=== PATIENT | female | born 1980 | race Caucasian/White ===

== ENCOUNTER 2016-06-12 09:19 | Day surgery (SDC) | payer BC ==
--- NOTE | 2016-06-05 16:50 | History and Physical Report ---
I saw Ms. Jones in the office on 06/05/16 in regards to a chronic left breast abscess. Ms. Jones is a 28-year-old female who states this has been present for about six to seven months. She stated she did have bilateral abscesses on her breasts, the right one drained spontaneously and resolved, the left one has always been festering. She was then placed on two courses on antibiotics without full resolution. PAST MEDICAL HISTORY: Significant for asthma. PAST SURGICAL HISTORY: Appendectomy. Cholecystectomy. Bunion surgery. Left ankle surgery. MEDICATIONS: She currently takes; Ventolin Advair as needed ALLERGIES: HAS NO KNOWN MEDICAL ALLERGIES. SOCIAL HISTORY: She denies any tobacco usages. She describes alcohol intake as social. PHYSICAL EXAMINATION: GENERAL: Height is 5'5". Weight is 265. She is afebrile. VITAL SIGNS: Stable. HEART: Regular. LUNGS: Clear. ABDOMEN: Soft. EXAMINATION OF HER BREASTS: On the right. there are no dominant breast masses noted. There is no supra- or infraclavicular adenopathy. No occipital adenopathy. No axillary adenopathy. On the left, there are no masses or adenopathy noted. She does have a 1.5 cm region at the 12 o'clock position to the inferior aspect of her breast, which has a chronic draining sinus. Most likely, has an underlying chronic abscess cavity. We did discuss risks, benefits , and alternatives to excising this area. Her main risk is wound infection afterwards. This is an area that is in a fold of her breast and postop wound infection is a possibility. We will schedule her for excision of this area. She also needs to be scheduled for mammography due to the fact that she is 36 and has never had any imaging done. This will be scheduled as well. I will see her back in two weeks after for postop check. Lam Doll D.O. Date & Time cc: Dr. Maged Wilson JOB [facility]BER: [id number] [facility]
[~2016-06-12 09:19] MED LIST: ACETAMINOPHEN 1000MG/100 ML PREMIX IV ONE; CEFAZOLIN 1 Gram 50 ML IVPB ONE
[2016-06-12] MEDS ORDERED: BUPIVACAINE 0.25% W/EPI MPF 30ML VIAL IVP ONE (14:00)
[2016-06-12] MEDS ORDERED: ONDANSETRON HCL IV 4 MG/2 ML VIAL IVP ONE (14:00)
[2016-06-12] MEDS ORDERED: FENTANYL PF 100MCG/2ML VIAL IV ONE (15:38)
[2016-06-12] MEDS ORDERED: LIDOCAINE 2% MDV (20MG/ML) 20ML VIAL IV ONE (15:38)
[2016-06-12] MEDS ORDERED: MIDAZOLAM HCL 2MG/2ML VIAL IV ONE (15:38)
[2016-06-12] MEDS ORDERED: PROPOFOL 10 MG/ML VIAL IV ONE (15:38)
--- NOTE | 2016-06-15 13:08 | Operative Note ---
DATE OF SURGERY: 06/12/2016 REFERRING: Maged Wilson D.O. PREOPERATIVE DIAGNOSIS: Recurrent left breast cyst. POSTOPERATIVE DIAGNOSIS: Recurrent left breast cyst. OPERATION: Excision of left breast cyst. Surgeon: Lam Doll D.O. Indication: The patient is a 36-year-old female who has had recurrent mass at the 6 o'clock position of her left breast. She states this occasionally becomes cellulitic and drains. On exam it looks like she has had a chronic abscess in this area. This is currently not infected. We did discuss excision, risks, benefits and alternatives. Her risks include bleeding, infection, acute chronic pain recurrence and she understood this fully. Consent was signed and questions answered. PROCEDURE: She was taken to the Operating Room and placed in the supine position. General anesthesia was administered per Department of Anesthesia. The patient's left breast was taped up. Her breast was prepped and draped in the usual sterile fashion. The area around the mass was anesthetized with a total of 5 mL of 0.25% Sensorcaine with epinephrine. An elliptical incision was made. This was carried around incorporating the entire mass. This measured about 3 x 2 cm. The wound was then irrigated. This was closed in layers with 3-0 and 4-0 Vicryl. She was taken to the Recovery Room in satisfactory condition, final pathology pending. Lam Doll DO CC: Maged Wilson D.O. [facility]
== END 2016-06-12 12:40 | disposition home or self-care (01) ==
LOC: SUR 09:19
PROVIDERS: ATTEND Surgery
DX: N60.02 Solitary cyst of left breast (principal); L72.0 Epidermal cyst
CPT/HCPCS: 19120; 00400; 81025; J2405; J3010; J0690

== ENCOUNTER 2016-10-12 17:54 | Emergency (ER) | payer BC, OTHER ==
--- NOTE | 2016-10-12 18:10 | Emergency Department Record ---
History of Present Illness <Jennifer Espinosa - Last Filed: 10/12/16 20:00> - General Source: Patient Mode of Arrival: Ambulatory Limitations: No limitations - History of Present Illness Initial comments: 36 yo female presents with bilaterally leg swelling today. She has had left side swelling on and off over about one month. She has had some foot and toe pain as well on the left. The pain radiates up the leg posteriorly at times. She states the left side swelling would come and go over a few days at a time. On October 10 she go sunburn on both legs. She now presents with bilateral leg swelling today. She denies right sided pain. She still has the pain on the left side. No fevers, cough, chest pain or cough. She was seen in the [facility] and evaluated. She was prescribed a compression hose. MD Complaint: Extremity pain, Extremity swelling, Joint swelling Onset/Timin -: Days(s) Location: Bilateral, Lower Leg History of Same: Yes Radiation: Distal Severity scale (1-10): 4 Quality: Aching Consistency: Constant Improves with: Nothing Worsens with: Nothing Associated Symptoms: Denies other symptoms <SANDRA CORBETT - Last Filed: 10/13/16 07:57> - General Chief complaint: Swelling of legs Stated complaint: FEET/ANKLES SWOLLEN Time Seen by Provider: 10/12/16 17:55 - Related Data Home Medications Medication Instructions Recorded Confirmed Last Taken Albuterol Sulfate [Ventolin Hfa] 17 gm IH Q4H PRN 12/05/13 10/12/16 1 Day Ago ~02/11/15 Fluticasone/Salmeterol 100/50 1 disk IH BID 02/12/15 10/12/16 1 Day Ago [Advair 100/50] ~02/11/15 Levothyroxine Sodium [Synthroid] 50 mcg PO DAILY 02/12/15 10/12/16 10/12/16 Ropinirole HCl 0.25 mg PO ASDIR #30 03/06/16 10/12/16 Unknown Previous Rx's Medication Instructions Recorded Furosemide [Lasix] 20 mg PO DAILY #7 tablet 10/12/16 Hydrocodone/Acetaminophen [[place] 1 each PO Q8H #10 tablet 10/12/16 5-325 Tablet] Allergies Allergy/AdvReac Type Severity Reaction Status Date / Time No Known Drug Allergies Allergy Verified 10/12/16 18:03 Travel Screening - Travel/Exposure Within Last 30 Days Have you traveled within the last 30 days?: No <SANDRA CORBETT - Last Filed: 10/13/16 07:57> Review of Systems Constitutional: Denies: Chills, Fever, Weakness Eyes: Denies: Eye discharge ENT: Denies: Congestion, Throat pain Respiratory: Denies: Cough, Dyspnea, Hemoptysis, Stridor, Wheezes Cardiovascular: Denies: Chest pain, Palpitations, Syncope Endocrine: Denies: Fatigue Gastrointestinal: Denies: Abdominal pain, Diarrhea, Nausea, Vomiting Genitourinary: Denies: Dysuria, Urgency Musculoskeletal: Reports: Arthralgia, Back pain, Myalgia. Denies: Neck pain Skin: Reports: Change in color (sun burn). Denies: Bruising Neurological: Reports: Numbness (lateral left three toes over the last one month ). Denies: Confusion, Headache Psychiatric: Denies: Anxiety Hematological/Lymphatic: Denies: Blood Clots, Easy bleeding, Easy bruising, Swollen glands <SANDRA CORBETT - Last Filed: 10/13/16 07:57> Past Medical History - SOCIAL HISTORY Smoking Status: Former smoker - RESPIRATORY Hx Respiratory Disorders: Yes Hx Asthma: Yes (good control) - CARDIOVASCULAR Hx Cardio Disorders: No - NEURO Hx Neuro Disorders: Yes Hx Headaches: Yes (frequent stress related) - GI Hx GI Disorders: No - Hx Genitourinary Disorders: Yes Hx Bladder Problem: Yes (urgency) Comment:: 20 years ago on Depo Provera - ENDOCRINE Hx Endocrine Disorders: Yes Hx Thyroid Disease: Yes (hypothyroid off meds) - MUSCULOSKELETAL Hx Musculoskeletal Disorders: No - PSYCH Hx Psych Problems: No - HEMATOLOGY/ONCOLOGY Hx Hematology/Oncology Disorders: No <SANDRA CORBETT - Last Filed: 10/13/16 07:57> Family Medical History Hx Heart Disease: Father Hx HTN: Father, Mother <SANDRA CORBETT - Last Filed: 10/13/16 07:57> Physical Exam - General General Appearance: Alert, Oriented x3, Cooperative, No acute distress Limitations: No limitations - Head Head exam: Normal inspection - Eye Eye exam: Normal appearance, PERRL. negative: Conjunctival injection, Periorbital swelling - ENT ENT exam: Normal exam, Mucous membranes moist Ear exam: Normal external inspection Nasal Exam: Normal inspection Mouth exam: Normal external inspection Teeth exam: Normal inspection - Neck Neck exam: Normal inspection - Respiratory Respiratory exam: Normal lung sounds bilaterally. negative: Respiratory distress - Cardiovascular Cardiovascular Exam: Regular rate, Normal rhythm, Normal heart sounds Peripheral Pulses: 2+: Radial (R), Radial (L) - GI/Abdominal GI/Abdominal exam: Soft. negative: Tenderness - Rectal Rectal exam: Deferred - exam: Deferred - Extremities Extremities exam: Calf tenderness (left), Full ROM, Normal capillary refill, Pedal edema (left greater than right), Tenderness (tender due to sun burn and tender LLE calf and inner thigh), Other (warm foot with good cap refill). negative: Normal inspection (erythema bilaterally consistent with sun burn) - Back Back exam: Reports: Normal inspection, Full ROM. Denies: Muscle spasm, Rash noted, Tenderness - Neurological Neurological exam: Alert, Normal gait, Oriented X3, Reflexes normal, Other (No foot drop, ). negative: Altered, Motor sensory deficit (the lateral 3 toes on the left sensation is intact but she has suject changes, no weakness to foot flexion or extenson or EHL. Full ROM with full strength.) - Psychiatric Psychiatric exam: Normal affect, Normal mood - Skin Skin exam: Erythema (sun burn bilateral legs) <SANDRA CORBETT - Last Filed: 10/13/16 07:57> Course Vital Signs 10/12/16 17:57 Temperature 98.6 F Pulse Rate 101 H Respiratory 20 Rate Blood Pressure 148/88 Pulse Ox 96 - Reevaluation(s) Reevaluation #3: 10/12/16 20:01 urine neg. <Jennifer Espinosa - Last Filed: 10/12/16 20:00> Vital Signs 10/12/16 17:57 Temperature 98.6 F Pulse Rate 101 H Respiratory 20 Rate Blood Pressure 148/88 Pulse Ox 96 - Reevaluation(s) Reevaluation #1: The patient was seen and examined She has bilateral erythema of the legs, very mild right leg swelling with greater swelling on the left Labs, US, XR ordered 10/12/16 18:13 Reevaluation #2: The case was signed out to Dr Espinosa for review of final results The prelim Venous doppler was negative We discussed the TSH. The patient will follow up with her PCP as she is on medication for known hypothroidism 10/12/16 19:14 <SANDRA CORBETT - Last Filed: 10/13/16 07:57> Medical Decision Making - Lab Data Result diagrams: 10/12/16 18:10 10/12/16 18:10 Lab Results 10/12/16 10/12/16 10/12/16 Range/Units 18:10 18:10 18:10 WBC 9.5 (4.2-12.2) K/uL RBC 4.56 (3.80-5.40) M/uL Hgb 13.6 (11.6-16.0) gm/dl Hct 41.1 (35.0-47.0) % MCV 90.1 (81-97) fl MCH 29.8 (27-33) pg MCHC 33.1 (32-36) g/dl RDW 13.4 (11.5-14.5) % Plt Count 346 (130-400) K/uL MPV 8.9 (7.4-10.4) fl Gran % 57.3 (47-80) % Lymphocytes % 33.6 (16-45) % Monocytes % 6.5 (0-9) % Eosinophils % 2.2 (0-6) % Basophils % 0.4 (0-6) % Sodium 139 (136-145) mmol/L Potassium 3.5 (3.5-5.1) mmol/L Chloride 100 (98-107) mmol/L Carbon Dioxide 24.4 (22-30) mmol/L Anion Gap 14.6 (7-16) BUN 8 (7-17) mg/dL Creatinine 0.6 (0.52-1.04) mg/dL Estimated GFR > 60 ml/min Random Glucose 150 H (70-110) mg/dL Calcium 9.2 (8.5-10.1) mg/dL NT-Pro-B Natriuret Pep (<125) pg/mL TSH 11.20 H (0.465-4.68) uIU/ml Urine Color Urine Appearance Urine pH (5.0-8.0) Ur Specific [place] (1.002-1.030) Urine Protein (NEGATIVE) Urine Glucose (UA) (NEGATIVE) Urine Ketones (NEGATIVE) Urine Blood (NEGATIVE) Urine Nitrite (NEGATIVE) Urine Bilirubin (NEGATIVE) Urine Urobilinogen (0.20 - 1.00) E.U./dL Ur Leukocyte Esterase (NEGATIVE) Urine RBC (NONE SEEN) Urine WBC (0-2/hpf) Ur Epithelial Cells (FEW) Urine HCG, Qual (NEGATIVE) 10/12/16 10/12/16 Range/Units 18:10 19:43 WBC (4.2-12.2) K/uL RBC (3.80-5.40) M/uL Hgb (11.6-16.0) gm/dl Hct (35.0-47.0) % MCV (81-97) fl MCH (27-33) pg MCHC (32-36) g/dl RDW (11.5-14.5) % Plt Count (130-400) K/uL MPV (7.4-10.4) fl Gran % (47-80) % Lymphocytes % (16-45) % Monocytes % (0-9) % Eosinophils % (0-6) % Basophils % (0-6) % Sodium (136-145) mmol/L Potassium (3.5-5.1) mmol/L Chloride (98-107) mmol/L Carbon Dioxide (22-30) mmol/L Anion Gap (7-16) BUN (7-17) mg/dL Creatinine (0.52-1.04) mg/dL Estimated GFR ml/min Random Glucose (70-110) mg/dL Calcium (8.5-10.1) mg/dL NT-Pro-B Natriuret Pep 54.70 (<125) pg/mL TSH (0.465-4.68) uIU/ml Urine Color Yellow Urine Appearance Clear Urine pH 6.0 (5.0-8.0) Ur Specific [place] <= 1.005 (1.002-1.030) Urine Protein Negative (NEGATIVE) Urine Glucose (UA) Negative (NEGATIVE) Urine Ketones Negative (NEGATIVE) Urine Blood Trace-i (NEGATIVE) Urine Nitrite Negative (NEGATIVE) Urine Bilirubin Negative (NEGATIVE) Urine Urobilinogen 0.2 (0.20 - 1.00) E.U./dL Ur Leukocyte Esterase Negative (NEGATIVE) Urine RBC 0 - 2 (NONE SEEN) Urine WBC None seen (0-2/hpf) Ur Epithelial Cells 3 - 6 (FEW) Urine HCG, Qual Negative (NEGATIVE) <Jennifer Espinosa - Last Filed: 10/12/16 20:00> - Lab Data Result diagrams: 10/12/16 18:10 10/12/16 18:10 <SANDRA CORBETT - Last Filed: 10/13/16 07:57> Disposition <Jennifer Espinosa - Last Filed: 10/12/16 20:00> <SANDRA CORBETT - Last Filed: 10/13/16 07:57> Clinical Impression: Edema Qualifiers: Edema type: unspecified Qualified Code(s): R60.9 - Edema, unspecified Radiculopathy Qualifiers: Spinal region: lumbar Qualified Code(s): M54.16 - Radiculopathy, lumbar region Disposition: Home, Self-Care Condition: (1) Good Instructions: Leg Edema (ED), Lumbar Radiculopathy (ED) Additional Instructions: Call your family doctor first thing tomorrow for close followup Return or seek medical evaluation if worse, weak, uncontrolled pain Prescriptions: Furosemide [Lasix] 20 mg PO DAILY #7 tablet Hydrocodone/Acetaminophen [[place] 5-325 Tablet] 1 each PO Q8H #10 tablet Forms: Patient Portal Access
[2016-10-12 18:15] LABS: BASO % 0.4 % (0-6); EOS % 2.2 % (0-6); GRAN % 57.3 % (47-80); HEMATOCRIT 41.1 % (35.0-47.0); HEMOGLOBIN 13.6 gm/dl (11.6-16.0); LYMPH % 33.6 % (16-45); MEAN CELL VOLUME 90.1 fl (81-97); MEAN CORPUSCULAR HEMOGLOBIN 29.8 pg (27-33); MEAN CORPUSCULAR HGB CONC 33.1 g/dl (32-36); MEAN PLATELET VOLUME 8.9 fl (7.4-10.4); MONO % 6.5 % (0-9); PLATELET COUNT 346 K/uL (130-400); RED BLOOD COUNT 4.56 M/uL (3.80-5.40); RED CELL DISTRIBUTION WIDTH 13.4 % (11.5-14.5); WHITE BLOOD COUNT W/O DIFF 9.5 K/uL (4.2-12.2)
[2016-10-12 18:27] LABS: ANION GAP 14.6 (7-16); BLOOD UREA NITROGEN 8 mg/dL (7-17); CARBON DIOXIDE 24.4 mmol/L (22-30); CREATININE 0.6 mg/dL (0.52-1.04); EST GLOMERULAR FILTRATION RATE > 60 ml/min; GLUCOSE,RANDOM 150 mg/dL (70-110)
[2016-10-12] MEDS ORDERED: FUROSEMIDE 20 MG TABLET PO ONE (19:13)
[2016-10-12 19:49] LABS: URINE APPEARANCE CLEAR; URINE BILIRUBIN NEGATIVE (NEGATIVE); URINE BLOOD TRACE-I (NEGATIVE); URINE COLOR YELLOW; URINE GLUCOSE (UA) NEGATIVE (NEGATIVE); URINE KETONE NEGATIVE (NEGATIVE); URINE LEUKOCYTE ESTERASE NEGATIVE (NEGATIVE); URINE NITRITE NEGATIVE (NEGATIVE); URINE PROTEIN NEGATIVE (NEGATIVE); URINE UROBILINOGEN 0.2 E.U./dL (0.20 - 1.00)
[2016-10-12 19:56] LABS: URINE RBC 0 - 2 (NONE SEEN); URINE WBC NONE SEEN (0-2/hpf)
[2016-10-12 19:57] LABS: HCG,QUALITATIVE URINE NEGATIVE (NEGATIVE)
--- NOTE | 2016-10-13 08:38 | US VENOUS DOPPLER REPORT ---
EXAM: DUPLEX VENOUS DOPPLER ULTRASOUND OF THE BILATERAL LOWER EXTREMITIES HISTORY: BILATERAL LEG SWELLING, LEFT GREATER THAN RIGHT. TECHNIQUE: Duplex venous Doppler ultrasound of the bilateral lower extremities was obtained. Comparison: None. FINDINGS: RIGHT LEG: The deep venous structures are normally compressible. No filling defects are seen. The right common femoral, superficial femoral, popliteal and proximal calf veins are widely patent. The veins are normally compressible and augmented flow is visible. LEFT LEG: The left common femoral, superficial femoral, left popliteal, and left proximal calf veins are widely patent. The veins are normally compressible and spontaneous and augmented flow is visible. No evidence of deep venous thrombosis. IMPRESSION: NO EVIDENCE OF DEEP VENOUS THROMBOSIS IN EITHER LEG FROM THE COMMON FEMORAL REGION THROUGH THE PROXIMAL CALF VEINS. JOB NUMBER: [id number] [facility]
--- NOTE | 2016-10-13 08:40 | RADIOLOGY REPORT ---
EXAM: LEFT FOOT HISTORY: SWELLING AND NUMBNESS IN HER TOES. TECHNIQUE: Three views of the left foot were obtained. Comparison: None. FINDINGS: No bone or joint abnormality identified. No fracture. No radiopaque foreign body. No destructive or erosive change. IMPRESSION: UNREMARKABLE LEFT FOOT EXAMINATION. JOB NUMBER: [id number] [facility]
== END 2016-10-12 20:08 | disposition home or self-care (01) ==
LOC: ER 17:54
DX: R60.0 Localized edema (principal); M54.16 Radiculopathy, lumbar region
CPT/HCPCS: 80048; 81001; 81025; 83880; 84443; 85025; 93970; 99283; 99284

== ENCOUNTER 2016-12-02 21:38 | Emergency (ER) | payer OTHER ==
--- NOTE | 2016-12-02 23:13 | Emergency Department Record ---
History of Present Illness - General Chief complaint: Extremity Problem Stated complaint: RIGHT LEG INJURY Time Seen by Provider: 12/02/16 22:34 Source: Patient Mode of Arrival: Ambulatory Limitations: No limitations - History of Present Illness Initial comments: The patient was walking and rolled her R ankle about 2 hours ago. She has had R ankle pain mainly and mild R knee pain. She is able to walk with pain. She denies any other injuries. MD Complaint: Extremity pain Onset/Timin -: Minutes(s) Location: Right, Ankle, Knee Severity scale (1-10): 10 Quality: Aching Consistency: Constant, Getting worse Improves with: Nothing Worsens with: Nothing - Related Data Allergies Allergy/AdvReac Type Severity Reaction Status Date / Time No Known Drug Allergies Allergy Verified 10/12/16 18:03 Travel Screening - Travel/Exposure Within Last 30 Days Have you traveled within the last 30 days?: No Review of Systems Constitutional: Denies: Chills, Fever Past Medical History - SOCIAL HISTORY Smoking Status: Former smoker - RESPIRATORY Hx Respiratory Disorders: Yes Hx Asthma: Yes (good control) - CARDIOVASCULAR Hx Cardio Disorders: No - NEURO Hx Neuro Disorders: Yes Hx Headaches: Yes (frequent stress related) - GI Hx GI Disorders: No - Hx Genitourinary Disorders: Yes Hx Bladder Problem: Yes (urgency) Comment:: 20 years ago on Depo Provera - ENDOCRINE Hx Endocrine Disorders: Yes Hx Thyroid Disease: Yes (hypothyroid off meds) - MUSCULOSKELETAL Hx Musculoskeletal Disorders: No - PSYCH Hx Psych Problems: No - HEMATOLOGY/ONCOLOGY Hx Hematology/Oncology Disorders: No Family Medical History Any Significant Family History?: Yes Hx Heart Disease: Father Hx HTN: Father, Mother Physical Exam - General General Appearance: Alert, Oriented x3, Cooperative, No acute distress - Head Head exam: Normal inspection - Eye Eye exam: Normal appearance, PERRL - ENT ENT exam: Normal exam, Mucous membranes moist, Normal external ear exam Ear exam: Normal external inspection. negative: External canal tenderness - Respiratory Respiratory exam: Normal lung sounds bilaterally. negative: Respiratory distress - Cardiovascular Cardiovascular Exam: Regular rate, Normal rhythm, Normal heart sounds - GI/Abdominal GI/Abdominal exam: negative: Tenderness - Extremities Extremities exam: Normal inspection (There is no swelling, bruising, or edema noted.), Full ROM (with pain to the R ankle and knee.), Normal capillary refill , Tenderness (There is mild tenderness to the R anterior lateral ankle just distal to the fibula.) - Neurological Neurological exam: Alert - Psychiatric Psychiatric exam: Normal affect, Normal mood - Skin Skin exam: Dry, Intact, Normal color Course Vital Signs 12/02/16 22:08 Temperature 97.9 F Pulse Rate 91 H Respiratory 18 Rate Blood Pressure 141/96 Pulse Ox 98 - Reevaluation(s) Reevaluation #1: I did explain to the patient that her xrays are normal. She is to see her PCP for recheck if not better in 3 days. 12/02/16 23:16 Medical Decision Making - Data Complexity MDM Data: X-Ray Ordered and/or Reviewed - Radiology Data Radiology results: Report reviewed (R ankle and knee: Neg pre Rad.) Disposition Disposition: Discharge Clinical Impression: Right ankle sprain Qualifiers: Encounter type: initial encounter Involved ligament of ankle: unspecified ligament Qualified Code(s): S93.401A - Sprain of unspecified ligament of right ankle, initial encounter Disposition: Home, Self-Care Condition: (1) Good Instructions: Ankle Sprain (ED) Additional Instructions: Please use Tylenol or Motrin for pain. Wear the ankle splint for 5 days. Please ice and elevate the ankle for 2 days. Please see your PCP if not better in 3-5 days. Return to the ER if not better in a week. Forms: Patient Portal Access Time of Disposition: 23:20 Quality - Quality Measures Quality Measures: N/A - Blood Pressure Screening View Details: Yes Does Patient Have Any of the Following: No Blood Pressure Classification: Hypertensive Reading Systolic Measurement: 141 Diastolic Measurement: 96 Screening for High Blood Pressure: < Pre-Hypertensive BP, F/U Documented > [ [id number]] Pre-Hypertensive Follow-up Interventions: Referral to alternative/primary care provider.
[2016-12-02] MEDS: IBUPROFEN 600 MG TABLET PO ONE (23:27)
--- NOTE | 2016-12-04 21:51 | RADIOLOGY REPORT ---
EXAM: ANKLE RIGHT 3 VIEWS HISTORY: PAIN POST TWISTING INJURY. TECHNIQUE: Three views of the right ankle. COMPARISON: Three views of the right ankle dated 12/03/13. ENCOUNTER: Initial. FINDINGS: There is normal bone mineralization. No acute fracture, dislocation, or destructive bone lesion is seen. On the oblique view, there is subtle lucency near the tip of the medial malleolus, though this is present on the prior examination. The ankle mortise joint space is symmetric. A small plantar calcaneal spur is present. IMPRESSION: 1. NO CONVINCING ACUTE FRACTURE NOR DISLOCATION IDENTIFIED. 2. SUBTLE LUCENCY NEAR THE TIP OF THE MEDIAL MALLEOLUS ON THE OBLIQUE VIEW IS VISUALIZED ON THE PRIOR EXAMINATION. JOB [facility]BER: [id number] [facility]
--- NOTE | 2016-12-04 21:57 | RADIOLOGY REPORT ---
EXAM: KNEE, RIGHT 4 VIEWS HISTORY: RIGHT ANKLE PAIN RADIATING TOWARD RIGHT KNEE POST INJURY. TECHNIQUE: Four views of the right knee. COMPARISON: No prior imaging of the right knee available for comparison. ENCOUNTER: Initial. FINDINGS: There is normal bone mineralization. No acute fracture, dislocation, or destructive bone lesion is seen. The articular relations are maintained and no focal soft tissue abnormality is identified. No joint effusion. IMPRESSION: NORMAL RIGHT KNEE. JOB NUMBER: [id number] [facility]
== END 2016-12-02 23:40 | disposition home or self-care (01) ==
LOC: ER 21:38
DX: S93.401A Sprain of unspecified ligament of right ankle, initial encounter (principal); M25.561 Pain in right knee; X50.0XXA Overexertion from strenuous movement or load, initial encounter; Y93.01 Activity, walking, marching and hiking
CPT/HCPCS: 99283; 99284

== ENCOUNTER 2018-04-04 18:34 | Emergency (ER) | payer SELFPAY ==
[2018-04-04] MEDS ORDERED: 0.9 % SODIUM CHLORIDE 1,000 ML BAG IV ONE (19:16)
[2018-04-04] MEDS ORDERED: KETOROLAC 30 MG/ML VIAL IVP ONE (19:17)
[2018-04-04 19:32] LABS: BASO % 0.1 % (0-6); EOS % 0.8 % (0-6); GRAN % 58.9 % (47-80); HEMATOCRIT 41.4 % (35.0-47.0); HEMOGLOBIN 13.5 gm/dl (11.6-16.0); LYMPH % 32.7 % (16-45); MEAN CELL VOLUME 91.2 fl (81-97); MEAN CORPUSCULAR HEMOGLOBIN 29.7 pg (27-33); MEAN CORPUSCULAR HGB CONC 32.6 g/dl (32-36); MEAN PLATELET VOLUME 8.6 fl (7.4-10.4); MONO % 7.5 % (0-9); PLATELET COUNT 307 K/uL (130-400); RED BLOOD COUNT 4.54 M/uL (3.80-5.40); RED CELL DISTRIBUTION WIDTH 14.1 % (11.5-14.5); WHITE BLOOD COUNT W/O DIFF 9.1 K/uL (4.2-12.2)
[2018-04-04 19:44] LABS: BLOOD UREA NITROGEN 8 mg/dL (6-20); CREATININE 0.7 mg/dL (0.5-0.9); EST GLOMERULAR FILTRATION RATE > 60 mL/min
[2018-04-04 19:47] LABS: GLUCOSE,RANDOM 76 mg/dL (74-109)
--- NOTE | 2018-04-04 19:48 | Emergency Department Record ---
History of Present Illness - General Chief Complaint: Headache Migraine Stated Complaint: [place],BLURRED VISION, EAR PAIN Time Seen by Provider: 04/04/18 19:02 Source: Patient Mode of Arrival: Ambulatory Limitations: No limitations - History of Present Illness Initial Comments: pt has had an intermittent headache for 2 weeks. it started suddenly, she does not recall what she was doing. it varies between 7-10. she has nausea. she also has pain in her l ear. 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 Complaint: Headache Onset/Timin -: Week(s) Onset Description: Sudden Location: Occipital, Right, Temporal Severity: Moderate Severity scale (1-10): 7 Quality: Throbbing, Similar to previous headaches Consistency: Constant Improves With: Nothing Worsens With: None Associated Symptoms: Nausea, Photophobia, Sensitivity to sound Treatments Prior to Arrival: Ibuprofen, Prescription analgesic Treatment Prior to Arrival Comment:: motrin 800 - Related Data Previous Rx's Medication Instructions Recorded Azithromycin [Zithromax] 250 mg PO DAILY #4 tab 04/04/18 Allergies Allergy/AdvReac Type Severity Reaction Status Date / Time No Known Drug Allergies Allergy Verified 04/04/18 18:50 Travel Screening - Travel/Exposure Within Last 30 Days Have you traveled within the last 30 days?: No - Travel/Exposure Within Last Year Have you traveled outside the [place] in the last year?: No - Additonal Travel Details Have you been exposed to anyone with a communicable illness?: No - Travel Symptoms Symptom Screening: None Review of Systems Reviewed: No additional complaints except as noted below Constitutional: Reports: As per HPI. Denies: Chills, Fever, Malaise, Night sweats, Weakness, Weight change Eyes: Reports: As per HPI. Denies: Eye discharge, Eye pain, Photophobia, Vision change ENT: Reports: As per HPI. Denies: Congestion, Dental pain, Ear pain, Epistaxis , Hearing loss, Throat pain Respiratory: Reports: As per HPI. Denies: Cough, Dyspnea, Hemoptysis, Stridor, Wheezes Cardiovascular: Reports: As per HPI. Denies: Arrhythmia, Chest pain, Dyspnea on exertion, Edema, Murmurs, Orthopnea, Palpitations, Paroxysmal nocturnal dyspnea, Rheumatic Fever, Syncope Endocrine: Reports: As per HPI. Denies: Fatigue, Heat or cold intolerance, Polydipsia, Polyuria Gastrointestinal: Reports: As per HPI. Denies: Abdominal pain, Constipation, Diarrhea, Hematemesis, Hematochezia, Melena, Nausea, Vomiting Genitourinary: Reports: As per HPI. Denies: Abnormal menses, Discharge, Dyspareunia, Dysuria, Frequency, Hematuria, Incontinence, Retention, Urgency Musculoskeletal: Reports: As per HPI. Denies: Arthralgia, Back pain, Gout, Joint swelling, Myalgia, Neck pain Skin: Reports: As per HPI. Denies: Bruising, Change in color, Change in hair/ nails, Lesions, Pruritus, Rash Neurological: Reports: As per HPI. Denies: Abnormal gait, Confusion, Headache, Numbness, Paresthesias, Seizure, Tingling, Tremors, Vertigo, Weakness Psychiatric: Reports: As per HPI. Denies: Anxiety, Auditory hallucinations, Depression, Homicidal thoughts, Suicidal thoughts, Visual hallucinations Hematological/Lymphatic: Reports: As per HPI. Denies: Anemia, Blood Clots, Easy bleeding, Easy bruising, Swollen glands Past Medical History - SOCIAL HISTORY Smoking Status: Former smoker Alcohol Use: Occasional Drug Use: None - RESPIRATORY Hx Respiratory Disorders: Yes Hx Asthma: Yes (good control) - CARDIOVASCULAR Hx Cardio Disorders: No - NEURO Hx Neuro Disorders: Yes Hx Headaches: Yes (frequent stress related) - GI Hx GI Disorders: No - Hx Genitourinary Disorders: Yes Hx Bladder Problem: Yes (urgency) Comment:: 20 years ago on Depo Provera - ENDOCRINE Hx Endocrine Disorders: Yes Hx Thyroid Disease: Yes (hypothyroid off meds) - MUSCULOSKELETAL Hx Musculoskeletal Disorders: No - PSYCH Hx Psych Problems: No - HEMATOLOGY/ONCOLOGY Hx Hematology/Oncology Disorders: No Family Medical History Any Significant Family History?: Yes Hx Heart Disease: Father Hx HTN: Father, Mother Physical Exam - General General Appearance: Alert, Oriented x3, Cooperative, Mild distress - Head Head exam: Normal inspection - Eye Eye exam: Normal appearance, PERRL, EOMI Pupils: Normal accommodation - ENT ENT exam: Normal exam, Mucous membranes moist, Normal external ear exam, Normal orophraynx, TM's normal bilaterally Ear exam: Normal external inspection. negative: External canal tenderness Nasal Exam: Normal inspection. negative: Discharge, Sinus tenderness Mouth exam: Normal external inspection, Tongue normal Teeth exam: Normal inspection. negative: Dental caries Throat exam: Normal inspection. negative: Tonsillar erythema, Tonsillar exudate - Neck Neck exam: Normal inspection, Full ROM. negative: Tenderness - Respiratory Respiratory exam: Normal lung sounds bilaterally. negative: Respiratory distress - Cardiovascular Cardiovascular Exam: Regular rate, Normal rhythm, Normal heart sounds - GI/Abdominal GI/Abdominal exam: Soft, Normal bowel sounds. negative: Tenderness - Rectal Rectal exam: Deferred - exam: Deferred - Extremities Extremities exam: Normal inspection, Full ROM, Normal capillary refill. negative: Tenderness - Back Back exam: Reports: Normal inspection, Full ROM. Denies: Muscle spasm, Rash noted, Tenderness - Neurological Neurological exam: Alert, CN II-XII intact, Normal gait, Oriented X3 - Psychiatric Psychiatric exam: Normal affect, Normal mood - Skin Skin exam: Dry, Intact, Normal color, Warm Course Vital Signs 04/04/18 18:51 Temperature 99.4 F Pulse Rate 89 Respiratory 16 Rate Blood Pressure 126/80 Pulse Ox 100 - Reevaluation(s) Reevaluation #1: 04/04/18 21:16 pt feels better. Medical Decision Making - Lab Data Result diagrams: 04/04/18 19:20 04/04/18 19:20 Disposition Disposition: Discharge Clinical Impression: Sinusitis Qualifiers: Sinusitis location: maxillary Chronicity: acute Recurrence: non-recurrent Qualified Code(s): J01.00 - Acute maxillary sinusitis, unspecified Disposition: Home, Self-Care Condition: (1) Good Instructions: Acute Headache (ED), Sinusitis (ED), Warm Compress or Soak (ED) Additional Instructions: follow up with family doctor. return sooner if worse. motrin with food. Prescriptions: Azithromycin [Zithromax] 250 mg PO DAILY #4 tab Forms: Patient Portal Access Quality - Quality Measures Quality Measures: N/A - Blood Pressure Screening Does Patient Have Any of the Following: No Blood Pressure Classification: Pre-Hypertensive BP Reading Systolic Measurement: 126 Diastolic Measurement: 80 Screening for High Blood Pressure: < Pre-Hypertensive BP, F/U Documented > [ G8950] Pre-Hypertensive Follow-up Interventions: Follow-up with rescreen every year.
[2018-04-04 20:03] LABS: ERYTHROCYTE SEDIMENTATION RATE 18 mm/hr (0-20)
[2018-04-04] MEDS ORDERED: METOCLOPRAMIDE HCL 10 MG/2 ML VIAL IVP ONE (20:18)
[2018-04-04] MEDS ORDERED: AZITHROMYCIN 500 MG TABLET PO ONE (21:15)
--- NOTE | 2018-04-05 10:14 | CT SCAN REPORT ---
DATE: 04/04/2018. EXAM: NONCONTRAST CT OF THE BRAIN. HISTORY: BLURRY VISION. TECHNIQUE: Noncontrast CT scan of the brain. COMPARISON: CT of the brain dated 03/21/2013. FINDINGS: No midline shift, mass effect, or abnormal intra- or extra-axial fluid collection. No cerebral edema, focal mass, or intracranial hemorrhage detected. Ventricle sizes are within normal limits. Basal cisterns appear noneffaced. No evidence of displaced calvarial fracture. Partial opacification of the left maxillary sinus and to a lesser extent the right maxillary sinus. IMPRESSION: 1. NO ACUTE INTRACRANIAL FINDINGS. 2. BILATERAL MAXILLARY SINUS DISEASE, GREATER ON THE LEFT. JOB NUMBER: [id number] [facility]
== END 2018-04-04 21:29 | disposition home or self-care (01) ==
LOC: ER 18:34
DX: J01.00 Acute maxillary sinusitis, unspecified (principal); R51 Headache; H92.02 Otalgia, left ear; R11.0 Nausea; Z87.891 Personal history of nicotine dependence
CPT/HCPCS: 99284 ×2; 96374; 96375; 85025; 85651; 80048; 70450; J1885; J2765; J7030

== ENCOUNTER 2018-06-20 21:06 | Emergency (ER) | payer SELFPAY ==
--- NOTE | 2018-06-20 21:37 | Emergency Department Record ---
History of Present Illness - General Chief Complaint: General Stated Complaint: UPPER RIB PAIN Time Seen by Provider: 06/20/18 21:31 Source: Patient Mode of Arrival: Ambulatory Limitations: No limitations - History of Present Illness Initial comments: 38 yo female presents to ED for evaluation of right lower rib pain x 2 days. Patient denies any precipitating factors (deep breaths, food), reports the feeling of "spasms" that come on at rest. Patient reports previous [place] and appendectomy, denies fevers, chills, or recent illness. Patient denies trauma or injury. Patient denies calf pain or swelling, recent surgery, or previous history of PE/DVT. Patient denies health problems other than asthma at her baseline. Onset/Timin -: Days(s) Location: Chest Radiation: Non-Radiating Quality: Other Consistency: Intermittent Improves with: None Worsens with: None Associated Symptoms: Denies other symptoms Treatments Prior to Arrival: None - Eleni Coma Scale Eye Response: (4) Open spontaneously Motor Response: (6) Obeys commands Verbal Response: (5) Oriented Eleni Total: 15 - Related Data Home Medications Medication Instructions Recorded Confirmed Last Taken Ropinirole HCl [Requip Xl] 1 mg PO ASDIR PRN 06/20/18 06/20/18 06/12/18 Allergies Allergy/AdvReac Type Severity Reaction Status Date / Time No Known Drug Allergies Allergy Verified 04/04/18 18:50 Travel Screening - Travel/Exposure Within Last 30 Days Have you traveled within the last 30 days?: No - Travel/Exposure Within Last Year Have you traveled outside the [place] in the last year?: No - Additonal Travel Details Have you been exposed to anyone with a communicable illness?: No - Travel Symptoms Symptom Screening: None Review of Systems Constitutional: Denies: Chills, Fever, Malaise, Night sweats Eyes: Denies: Eye discharge, Eye pain ENT: Denies: Congestion, Ear pain, Epistaxis Respiratory: Denies: Cough, Dyspnea Cardiovascular: Reports: Chest pain. Denies: Dyspnea on exertion Endocrine: Denies: Fatigue, Heat or cold intolerance Gastrointestinal: Denies: Abdominal pain, Nausea, Vomiting Genitourinary: Denies: Incontinence, Retention Musculoskeletal: Denies: Arthralgia, Back pain Skin: Denies: Bruising, Change in color Neurological: Denies: Abnormal gait, Confusion, Headache, Seizure Psychiatric: Denies: Anxiety Hematological/Lymphatic: Denies: Anemia, Blood Clots Past Medical History - SOCIAL HISTORY Smoking Status: Former smoker Alcohol Use: Occasional Drug Use: None - RESPIRATORY Hx Respiratory Disorders: Yes Hx Asthma: Yes (good control) - CARDIOVASCULAR Hx Cardio Disorders: No - NEURO Hx Neuro Disorders: Yes Hx Headaches: Yes (frequent stress related) - GI Hx GI Disorders: No - Hx Genitourinary Disorders: Yes Hx Bladder Problem: Yes (urgency) Comment:: 20 years ago on Depo Provera - ENDOCRINE Hx Endocrine Disorders: Yes Hx Thyroid Disease: Yes (hypothyroid off meds) - MUSCULOSKELETAL Hx Musculoskeletal Disorders: No - PSYCH Hx Psych Problems: Yes Hx Anxiety: Yes - HEMATOLOGY/ONCOLOGY Hx Hematology/Oncology Disorders: No Family Medical History Any Significant Family History?: Yes Hx Heart Disease: Father Hx HTN: Father, Mother Hx Stroke: Grandparents Physical Exam - General General Appearance: Alert, Oriented x3, Cooperative, Mild distress Limitations: No limitations - Head Head exam: Atraumatic, Normocephalic, Normal inspection Head exam detail: negative: Abrasion, Contusion, Howard's sign, General tenderness, Hematoma, Laceration - Eye Eye exam: Normal appearance. negative: Conjunctival injection, Periorbital swelling, Periorbital tenderness, Scleral icterus - ENT Ear exam: negative: Auricular hematoma, Auricular trauma Nasal Exam: negative: Active bleeding, Discharge, Dried blood, Foreign body Mouth exam: negative: Drooling, Laceration, Muffled voice, Tongue elevation - Neck Neck exam: Normal inspection. negative: Meningismus, Tenderness - Respiratory Respiratory exam: Normal lung sounds bilaterally. negative: Rales, Respiratory distress, Rhonchi, Stridor - Cardiovascular Cardiovascular Exam: Regular rate, Normal rhythm, Normal heart sounds - GI/Abdominal GI/Abdominal exam: Soft. negative: Rebound, Rigid, Tenderness - Rectal Rectal exam: Deferred - exam: Deferred - Extremities Extremities exam: Normal inspection. negative: Pedal edema, Tenderness - Back Back exam: Denies: CVA tenderness (R), CVA tenderness (L) - Neurological Neurological exam: Alert, Normal gait, Oriented X3 - Psychiatric Psychiatric exam: Normal affect, Normal mood - Skin Skin exam: Normal color. negative: Abrasion Type of lesion: negative: abrasion Course Vital Signs 06/20/18 21:13 Temperature 98.1 F Pulse Rate 91 H Respiratory 16 Rate Blood Pressure 148/97 - Reevaluation(s) Reevaluation #1: 06/20/18 23:06 EKG: NSR 77 Normal axis, normal intervals No acute ST-T wave changes Laboratory studies are grossly unremarkable for an acute process. CXR: No acute process Patient was updated on all results, negative for PE, Infiltrate, or pneumothorax. Symptoms are reproducible and localized to the right lower ribs, not c/w cardiac etiology, EKG is normal in appearance. I reviewed all of the patient's results and what was excluded by her history and examination (cholecystitis, pneumonia, PE, pneumothorax), and that her symptoms are likely to be spasms related to chest wall muscles. Recommended Ibuprofen as needed, instructions to return to the ED if her symptoms worsen. Medical Decision Making - Lab Data Result diagrams: 06/20/18 21:40 06/20/18 21:40 Disposition Disposition: Discharge Clinical Impression: Chest wall pain Disposition: Home, Self-Care Condition: (2) Stable Instructions: Chest Wall Pain (ED) Additional Instructions: Return to ED if your symptoms worsen or if you have any concerns. Ibuprofen as directed. Follow-up with your family doctor in 3-5 days as directed. Forms: Patient Portal Access Time of Disposition: 23:09 Quality - Quality Measures Quality Measures: N/A - Blood Pressure Screening Does Patient Have Any of the Following: No Blood Pressure Classification: Hypertensive Reading Systolic Measurement: 148 Diastolic Measurement: 97 Screening for High Blood Pressure: < First Hypertensive BP, F/U Documented > [ G8950] First Hypertensive Follow-up Interventions: Referral to alternative/primary care provider.
[2018-06-20 21:44] LABS: BASO % 0.2 % (0-6); EOS % 1.8 % (0-6); GRAN % 56.3 % (47-80); HEMATOCRIT 41.1 % (35.0-47.0); HEMOGLOBIN 13.2 gm/dl (11.6-16.0); LYMPH % 35.5 % (16-45); MEAN CELL VOLUME 93.2 fl (81-97); MEAN CORPUSCULAR HEMOGLOBIN 29.9 pg (27-33); MEAN CORPUSCULAR HGB CONC 32.1 g/dl (32-36); MEAN PLATELET VOLUME 8.8 fl (7.4-10.4); MONO % 6.2 % (0-9); PLATELET COUNT 335 K/uL (130-400); RED BLOOD COUNT 4.41 M/uL (3.80-5.40); RED CELL DISTRIBUTION WIDTH 14.5 % (11.5-14.5)
[2018-06-20 21:55] LABS: BLOOD UREA NITROGEN 7 mg/dL (6-20); CREATININE 0.6 mg/dL (0.5-0.9); EST GLOMERULAR FILTRATION RATE > 60 mL/min
[2018-06-20 21:56] LABS: TOTAL PROTEIN 8.1 g/dL (6.6-8.7)
[2018-06-20 21:58] LABS: GLUCOSE,RANDOM 110 mg/dL (74-109)
[2018-06-20 22:01] LABS: ALB/GLOB RATIO 1.1 (1.1-1.8); ALBUMIN 4.2 g/dL (4.0-5.0); ALKALINE PHOSPHATASE 84 U/L (35-104); ALT/SGPT 68 U/L (<33); AST/SGOT 54 U/L (10.0-35.0)
--- NOTE | 2018-06-23 18:15 | RADIOLOGY REPORT ---
EXAM: CHEST 2 VIEWS HISTORY: RIGHT-SIDED RIB PAIN STARTING YESTERDAY WHILE SITTING ON THE COUCH. TECHNIQUE: PA and lateral views. COMPARISON: Two-view chest 02/12/15. FINDINGS: Heart size is normal. No definite acute infiltrate seen. No pleural effusion or pneumothorax evident. Mild thoracic curve to the right. IMPRESSION: MILD THORACIC CURVE TO THE RIGHT. NO DEFINITE ACUTE INFILTRATE SEEN. JOB NUMBER: [id number] [facility]
== END 2018-06-20 23:31 | disposition home or self-care (01) ==
LOC: ER 21:06
DX: R07.89 Other chest pain (principal); Z87.891 Personal history of nicotine dependence
CPT/HCPCS: 71046; 80053; 85025; 85379; 93005; 93010; 99284